=== PATIENT | female | born 1955 | race Two or more races ===

== ENCOUNTER 2023-08-17 22:09 | Inpatient (IN) | payer MEDICARE, OTHER ==
[~2023-08-17] VITALS: Ht 162.6 cm; Wt 173.7 kg
[2023-08-17 22:26] VITALS: O2SAT 98
[2023-08-17] MEDS ORDERED: DILTIAZEM HCL 25 MG IV ONE (22:28)
[2023-08-17 22:33] LABS: BASOPHILS % (AUTO) 0.2 % (0.0-2.0); EOSINOPHILS # (AUTO) 0.3 K/uL (0.0-0.7); EOSINOPHILS % (AUTO) 1.7 % (0.0-6.0); HEMATOCRIT 35 % (33-45); HEMOGLOBIN 10.9 g/dL (11.5-14.8); LYMPHOCYTES % (AUTO) 19.3 % (20.0-44.0); MEAN CORPUSCULAR HEMOGLOBIN 29 PG (26.0-33.0); MEAN CORPUSCULAR HGB CONC 31 g/dl (31.0-36.0); MEAN CORPUSCULAR VOLUME 93 fL (82-100); MONOCYTES # (AUTO) 1.1 K/uL (0.1-1.30); MONOCYTES % (AUTO) 7.2 % (2.0-12.0); NEUTROPHILS # (AUTO) 11.1 K/uL (1.8-8.9); NEUTROPHILS % (AUTO) 71.6 % (43.0-81.0); PLATELET COUNT (AUTO) 434 K/uL (150-450); RED BLOOD CELL COUNT(AUTO) 3.81 MIL/uL (4.0-5.2); RED CELL DISTRIBUTION WIDTH 16.1 % (11.5-15.0); WHITE BLOOD COUNT (AUTO) 15.4 K/uL (4.3-11.0)
[2023-08-17] MEDS: DILTIAZEM HCL 50 MG IV IV ONE (22:36)
[2023-08-17 22:40] LABS: CALCIUM, SERUM 11.5 mg/dL (8.5-10.1); CREATININE 0.9 mg/dL (0.6-1.3); POTASSIUM 4.9 mmol/L (3.5-5.1)
[2023-08-17 22:54] LABS: ALBUMIN 1.9 g/dL (3.4-5.0); BILIRUBIN,TOTAL 0.6 mg/dL (0.2-1.0); MAGNESIUM 1.8 mg/dL (1.8-2.4); TOTAL PROTEIN, SERUM 7.4 g/dL (6.4-8.2)
[2023-08-17 22:55] LABS: LACTIC ACID 1.3 mmol/L (0.4-2.0)
[2023-08-17] MEDS ORDERED: ETOMIDATE 2 MG/ML VIAL ONE (22:58)
[2023-08-17] MEDS: ETOMIDATE 2 MG/ML VIAL IV ONE (23:06)
[2023-08-17] MEDS ORDERED: CT SWABBABLE VALVE TRANS SET 1 EA INFUS.SET MC ONE (23:39)
[2023-08-17] MEDS ORDERED: IV NS 0.9% 250 ML IV ONE (23:39)
[2023-08-17] MEDS ORDERED: IOHEXOL-350 100 ML VIAL IV ONE (23:39)
[2023-08-18] VITALS (13 sets, daily range): BP systolic 97–118; BP diastolic 56–79; TEMP 97.6–98.7; O2SAT 93–98
[2023-08-18] MEDS ORDERED: Z GUARD REMEDY 4 OZ OINT TP PRN (01:30)
[2023-08-18] MEDS ORDERED: MORPHINE SULFATE INJ 2 MG/ML DISP.SYRIN IV PRN (01:30)
[2023-08-18] MEDS ORDERED: IPRATROPIUM NEB FS 0.5 MG/2.5 ML AMPUL.NEB NEB PRN (01:30)
[2023-08-18] MEDS ORDERED: ALBUTEROL FS 2.5 MG/3 ML VIAL.NEB NEB PRN (01:30)
[2023-08-18] MEDS ORDERED: ONDANSETRON HCL/PF 4 MG/2 ML VIAL IVP PRN (01:30)
[2023-08-18] MEDS: ENOXAPARIN SODIUM 40 MG/0.4 ML DISP.SYRIN SQ SCH (03:37)
[2023-08-18] MEDS: IV D5/0.45 NACL 1,000 ML IV PRN (03:38)
[2023-08-18 03:46] LABS: ABG BASE EXCESS 9.9 mmol/L; ABG OXYGEN SATURATION 96.8 % (92.0-98.5); ABG PCO2 62.3 mmHg (35.0-45.0); ABG PH 7.391 (7.350-7.450); ABG PO2 85.8 mmHg (75.0-100.0); COHb 0.1 % (0.5-1.5); MetHb 0.3 % (0.0-1.5); O2Hb 96.4 % (94.0-97.0); SITE, ABG Left Radial; VENT MODE, BG 6 L TRACH MASK
[2023-08-18] MEDS ORDERED: CEFEPIME 1 GM VIAL ONE (04:04)
[2023-08-18] MEDS: CEFEPIME 1 GM VIAL IM SCH (04:41)
[2023-08-18] MEDS: CEFEPIME 1 GM in IV D5W 50 ML IV SCH (09:17)
[2023-08-18] MEDS: PANTOPRAZOLE 40 MG VIAL IV SCH (09:17)
[2023-08-18] MEDS: IPRATROPIUM NEB FS 0.5 MG/2.5 ML AMPUL.NEB NEB SCH (10:00)
[2023-08-18] MEDS ORDERED: INSU100I45 SQ (10:10)
[2023-08-18] MEDS ORDERED: POLY17PO4 PO (10:10)
[2023-08-18] MEDS ORDERED: ACET-868 PO (10:10)
[2023-08-18] MEDS ORDERED: FENO145T21 PO (10:10)
[2023-08-18] MEDS ORDERED: OMEP40CA21 PO (10:10)
[2023-08-18] MEDS ORDERED: MULT-213 PO (10:10)
[2023-08-18] MEDS ORDERED: DULA1.5P SQ (10:10)
[2023-08-18] MEDS ORDERED: CYAN-6 IJ (10:10)
[2023-08-18] MEDS ORDERED: LACT1CAP57 PO (10:10)
[2023-08-18] MEDS ORDERED: QUET100T PO (10:10)
[2023-08-18] MEDS ORDERED: NYST1POW11 TP (10:10)
[2023-08-18] MEDS ORDERED: INSU100I47 SQ (10:10)
[2023-08-18] MEDS ORDERED: ALBU2.5V38 IH (10:10)
[2023-08-18] MEDS ORDERED: ATOR10TA PO (10:10)
[2023-08-18] MEDS ORDERED: BACL5TAB PO (10:10)
[2023-08-18] MEDS ORDERED: FURO-144 PO (10:10)
[2023-08-18] MEDS ORDERED: GUAI100S11 PO (10:10)
[2023-08-18] MEDS ORDERED: DOXE50CA4 PO (10:10)
[2023-08-18] MEDS ORDERED: LORA2TAB95 PO (10:10)
[2023-08-18] MEDS ORDERED: SENN-261 PO (10:10)
[2023-08-18] MEDS ORDERED: MAGN400O6 PO (10:10)
[2023-08-18] MEDS ORDERED: BISA10SU11 RC (10:10)
[2023-08-18] MEDS ORDERED: MIDO10TA PO (10:10)
[2023-08-18] MEDS ORDERED: DOCU100T2 PO (10:10)
[2023-08-18] MEDS ORDERED: TYLENOL COD PO (10:10)
[2023-08-18] MEDS ORDERED: METF-440 PO (10:10)
[2023-08-18] MEDS ORDERED: VALP250C3 PO (10:10)
[2023-08-18] MEDS ORDERED: METH-647 PO (10:10)
[2023-08-18] MEDS ORDERED: NALO4SPR NS (10:10)
[2023-08-18] MEDS ORDERED: CHOL200059 PO (10:10)
[2023-08-18] MEDS ORDERED: ESCI10TA PO (10:10)
[2023-08-18] MEDS ORDERED: OLAN2.5T3 PO (10:10)
[2023-08-18] MEDS ORDERED: FLUT1DIS IH (10:10)
[2023-08-18] MEDS ORDERED: APIX2.5T PO (10:10)
[2023-08-18] MEDS ORDERED: IPRA0.2S49 IH (10:10)
[2023-08-18] MEDS ORDERED: HYDR50TA61 PO (10:10)
[2023-08-18] MEDS ORDERED: GABA-536 PO (10:10)
[2023-08-18] MEDS ORDERED: GLUC1KIT SQ (10:10)
[2023-08-18] MEDS ORDERED: NA P133E RC (10:10)
[2023-08-18] MEDS ORDERED: TAMS-12 PO (10:10)
[2023-08-19] VITALS (16 sets, daily range): BP systolic 98–135; BP diastolic 54–103; TEMP 97.5–98.5; O2SAT 93–99
[2023-08-19 07:10] LABS: BASOPHILS # (AUTO) 0.1 K/uL (0.0-0.2); BASOPHILS % (AUTO) 0.4 % (0.0-2.0); EOSINOPHILS # (AUTO) 0.3 K/uL (0.0-0.7); EOSINOPHILS % (AUTO) 2.2 % (0.0-6.0); HEMATOCRIT 30 % (33-45); HEMOGLOBIN 9.6 g/dL (11.5-14.8); LYMPHOCYTES # (AUTO) 2.3 K/uL (0.8-4.8); LYMPHOCYTES % (AUTO) 16.2 % (20.0-44.0); MEAN CORPUSCULAR HEMOGLOBIN 29 PG (26.0-33.0); MEAN CORPUSCULAR HGB CONC 32 g/dl (31.0-36.0); MEAN CORPUSCULAR VOLUME 92 fL (82-100); MONOCYTES # (AUTO) 1.2 K/uL (0.1-1.30); MONOCYTES % (AUTO) 8.3 % (2.0-12.0); NEUTROPHILS # (AUTO) 10.3 K/uL (1.8-8.9); NEUTROPHILS % (AUTO) 72.9 % (43.0-81.0); PLATELET COUNT (AUTO) 345 K/uL (150-450); RED BLOOD CELL COUNT(AUTO) 3.29 MIL/uL (4.0-5.2); RED CELL DISTRIBUTION WIDTH 15.6 % (11.5-15.0); WHITE BLOOD COUNT (AUTO) 14.1 K/uL (4.3-11.0)
[2023-08-19 07:35] LABS: CREATININE 0.9 mg/dL (0.6-1.3); PHOSPHORUS 2.1 mg/dL (2.5-4.9); POTASSIUM 4.9 mmol/L (3.5-5.1)
[2023-08-19 07:50] LABS: THYROID STIMULATING HORMONE 1.953 uIU/mL (0.358-3.74)
[2023-08-19] MEDS: NEUTRA PHOS 1 POWD.PACKET PO SCH (10:10)
[2023-08-19] MEDS ORDERED: SENNOSIDES 8.6 MG TABLET PO PRN (10:30)
[2023-08-19] MEDS ORDERED: BISACODYL SUPP (10 MG) 10 MG/SUPP.RECT SUPP.RECT RC PRN (10:30)
[2023-08-19] MEDS ORDERED: IPRATROPIUM NEB FS 0.5 MG/2.5 ML AMPUL.NEB IH PRN (10:30)
[2023-08-19] MEDS ORDERED: MIDODRINE HCL (5MG) 5 MG TABLET PO PRN (11:00)
[2023-08-19] MEDS ORDERED: LORAZEPAM 1 MG TABLET PO PRN (11:00)
[2023-08-19] MEDS: IV NS 0.9% 500 ML IV ONE (11:35)
[2023-08-19] MEDS: VALPROIC ACID 250 MG/5 ML UDC PO SCH (13:11)
[2023-08-19] MEDS: METHOCARBAMOL (500MG) 500 MG TABLET PO SCH (13:13)
[2023-08-19] MEDS: GABAPENTIN 400 MG CAPSULE PO SCH (13:14)
[2023-08-19] MEDS: DOXEPIN HCL (25 MG) 25 MG CAPSULE PO SCH (13:20)
[2023-08-19] MEDS: BACLOFEN (10 MG) 10 MG TABLET PO SCH (13:21)
[2023-08-19] MEDS: ALBUTEROL FS 2.5 MG/0.5 ML VIAL.NEB NEB SCH (14:01)
[2023-08-19] MEDS ORDERED: NEUTRA PHOS 1 POWD.PACKET PO ONE (16:00)
[2023-08-19] MEDS: DOCUSATE SODIUM 100 MG CAPSULE PO SCH (16:38)
[2023-08-19] MEDS: METFORMIN 500 MG TABLET PO SCH (16:39)
[2023-08-19] MEDS: APIXABAN 2.5 MG TABLET PO SCH (16:41)
[2023-08-19] MEDS: BUDESONIDE RESPULE INH 0.5 MG/2 ML AMPUL.NEB IH SCH (20:15)
[2023-08-19] MEDS: TAMSULOSIN 0.4 MG CAP.SR.24H PO SCH (22:49)
[2023-08-19] MEDS: ESCITALOPRAM OXALATE (10 MG) 10 MG TABLET PO SCH (22:50)
[2023-08-19] MEDS: ATORVASTATIN 10 MG TABLET PO SCH (22:52)
[2023-08-19] MEDS: QUETIAPINE FUMARATE 100 MG TABLET PO SCH (22:53)
[2023-08-20] VITALS (16 sets, daily range): BP systolic 98–121; BP diastolic 58–76; TEMP 98–99.3; O2SAT 93–99
[2023-08-20 07:50] LABS: BASOPHILS % (AUTO) 0.3 % (0.0-2.0); EOSINOPHILS # (AUTO) 0.3 K/uL (0.0-0.7); EOSINOPHILS % (AUTO) 2.4 % (0.0-6.0); HEMATOCRIT 28 % (33-45); LYMPHOCYTES # (AUTO) 2.3 K/uL (0.8-4.8); LYMPHOCYTES % (AUTO) 18.7 % (20.0-44.0); MEAN CORPUSCULAR HEMOGLOBIN 29 PG (26.0-33.0); MEAN CORPUSCULAR HGB CONC 32 g/dl (31.0-36.0); MEAN CORPUSCULAR VOLUME 92 fL (82-100); MONOCYTES # (AUTO) 1.1 K/uL (0.1-1.30); MONOCYTES % (AUTO) 9.1 % (2.0-12.0); NEUTROPHILS # (AUTO) 8.5 K/uL (1.8-8.9); NEUTROPHILS % (AUTO) 69.5 % (43.0-81.0); PLATELET COUNT (AUTO) 349 K/uL (150-450); RED BLOOD CELL COUNT(AUTO) 3.06 MIL/uL (4.0-5.2); RED CELL DISTRIBUTION WIDTH 15.7 % (11.5-15.0); WHITE BLOOD COUNT (AUTO) 12.2 K/uL (4.3-11.0)
[2023-08-20 08:03] LABS: CALCIUM, SERUM 10.3 mg/dL (8.5-10.1); CREATININE 0.9 mg/dL (0.6-1.3); MAGNESIUM 1.8 mg/dL (1.8-2.4); PHOSPHORUS 2.2 mg/dL (2.5-4.9); POTASSIUM 4.8 mmol/L (3.5-5.1)
[2023-08-20] MEDS ORDERED: FUROSEMIDE 40 MG TABLET PO SCH (09:00)
[2023-08-20 09:02] LABS: THYROID STIMULATING HORMONE 2.022 uIU/mL (0.358-3.74); URIC ACID 5.7 mg/dL (2.6-7.2)
[2023-08-20] MEDS: OLANZAPINE 2.5 MG TABLET PO SCH (09:45)
[2023-08-20] MEDS: PANTOPRAZOLE 40 MG/PACK PACK PO SCH (09:45)
[2023-08-20] MEDS: PROSOURCE / PROSTAT (PYXIS) 30 ML UDC PO SCH (09:46)
[2023-08-20] MEDS: NEUTRA PHOS 1 POWD.PACKET PO ONE (15:31)
[2023-08-21] VITALS (17 sets, daily range): BP systolic 99–119; BP diastolic 53–69; TEMP 98–98.8; O2SAT 93–98
[2023-08-21 13:14] LABS: ABG BASE EXCESS 11.8 mmol/L; ABG OXYGEN SATURATION 92.2 % (92.0-98.5); ABG PCO2 61.5 mmHg (35.0-45.0); ABG PH 7.413 (7.350-7.450); ABG PO2 64.4 mmHg (75.0-100.0); ABG TOTAL HEMOGLOBIN 10.5 G/dL (12.0-16.0); COHb 0.3 % (0.5-1.5); MetHb 0.5 % (0.0-1.5); O2Hb 91.5 % (94.0-97.0); SITE, ABG Left Radial; VENT MODE, BG 35% C/A
[2023-08-21 17:02] LABS: CALCIUM, SERUM 9.9 mg/dL (8.5-10.1); CREATININE 0.9 mg/dL (0.6-1.3); POTASSIUM 5.1 mmol/L (3.5-5.1)
[2023-08-22] VITALS (15 sets, daily range): BP systolic 96–145; BP diastolic 51–109; TEMP 98.1–100; O2SAT 92–100
[2023-08-22 18:19] LABS: CREATININE 0.9 mg/dL (0.6-1.3); POTASSIUM 5.2 mmol/L (3.5-5.1)
[2023-08-23] VITALS (10 sets, daily range): BP systolic 96–104; BP diastolic 50–92; TEMP 97.6–99.1; O2SAT 94–98
[2023-08-23 07:33] LABS: CREATININE 0.9 mg/dL (0.6-1.3); POTASSIUM 4.6 mmol/L (3.5-5.1)
[2023-08-23 08:27] LABS: CALCIUM, SERUM 10.2 mg/dL (8.5-10.1)
== END 2023-08-23 13:57 | DRG 308 ==
LOC: ER 22:12 → TELE1 08-18 01:12
PROVIDERS: ADMIT Internal Medicine; ATTEND Internal Medicine
PROC: 5A2204Z Restoration of Cardiac Rhythm, Single (ICD-10-PCS; principal; 2023-08-18)
PROC: 05HD33Z Insertion of Infusion Device into Right Cephalic Vein, Percutaneous Approach (ICD-10-PCS; 2023-08-18)
PROC: 05HB33Z Insertion of Infusion Device into Right Basilic Vein, Percutaneous Approach (ICD-10-PCS; 2023-08-19)
DX: I47.19 Other supraventricular tachycardia (principal); J96.21 Acute and chronic respiratory failure with hypoxia; J96.22 Acute and chronic respiratory failure with hypercapnia; I50.33 Acute on chronic diastolic (congestive) heart failure; E87.1 Hypo-osmolality and hyponatremia; E66.2 Morbid (severe) obesity with alveolar hypoventilation; Z74.01 Bed confinement status; E78.5 Hyperlipidemia, unspecified; F31.9 Bipolar disorder, unspecified; Z20.822 Contact with and (suspected) exposure to COVID-19; K21.9 Gastro-esophageal reflux disease without esophagitis; E83.52 Hypercalcemia; D63.8 Anemia in other chronic diseases classified elsewhere; Z93.0 Tracheostomy status; Z88.6 Allergy status to analgesic agent; Z88.1 Allergy status to other antibiotic agents; Z88.0 Allergy status to penicillin; Z88.2 Allergy status to sulfonamides; Z88.8 Allergy status to other drugs, medicaments and biological substances; E86.9 Volume depletion, unspecified
CPT/HCPCS: 31720; 36410; 36415; 36600; 71045-TC; 80048-TC; 80053-TC; 82803-TC; 83605-TC; 83735-TC; 83880; 84100-TC; 84443-TC; 84484-TC; 84550-TC; 85025-TC; 85378-TC; 92526; 92611-TC; 93307-TC; 93970-TC; 94640-TC; 94799-TC; A4223; A4623; A7526; C9113; G0378; G0500; J0692; J1650; J3490; J7040; J7050; J7060; Q9967